=== PATIENT | male | born 1940 | race Caucasian/White ===

== ENCOUNTER → 2019-04-17 10:32 | Outpatient (CLI) | payer OTHER ==
[2012-10-30 07:07] VITALS: BMI 28.7
[~2019-04-17 10:32] MED LIST: ASPIRIN 81 MG E81 MG PO; NORVASC5 MG PO; PRINIVIL20 MG PO; ZETIA10 MG PO
== END | disposition home or self-care (01) ==
LOC: D.HCCARDIO 10:32
PROVIDERS: ATTEND Internal Medicine Interventional Cardiology
DX: I25.10 Atherosclerotic heart disease of native coronary artery without angina pectoris (principal)

== ENCOUNTER 2019-05-06 07:34 | Outpatient (CLI) | payer OTHER ==
[~2019-05-06] VITALS: Ht 177.8 cm; Wt 84.5 kg
--- NOTE | ~2019-05-06 | HEMODYNAMI ---
PATIENT:DAVE QUINTANILLA MEDICAL RECORD: [id number] : 36 LOCATION:[facility] ADMISSION DATE: 05/06/19 Generatedon:05/06/201910:58 Patient name: DAVE QUINTANILLA Patient #: [id number] SSN: [id number] : 1940 Date of study: 05/06/2019 Page: Of Hemodynamic Procedure Report Patient Data Patient Demographics Procedure consent was obtained First Name: DAVE Gender: Male Last Name: DWIGHT : 1940 Middle Initial: EDWARD Age: 78 year(s) Patient #: [id number] Race: SSN: [id number] Additional ID: [id number] Contact details [address]: [address] [place] [address] State: [place] City: [place] Zip code: [address] Past Medical History Performed procedures and imaging results Date Procedure Procedure Results Comments 04/17/2019 Stress testing Positive->Intermediate with SPECT MPI risk Admission Admission Data Admission Date: 05/06/2019 Admission Time: 7:34 Arrival Date: 05/06/2019 Arrival Time: 0:00 Admit Source: Other Insurance Payor: Private health insurance Height (in.): 70 BSA: 2.02 (m2) Height (cm.): 177.8 BMI: 26.71 (kg/m2) Weight (lbs.): 186.18 Weight (kg.): 84.45 Lab Results Lab Result Date: 05/06/2019 Lab Result Time: 0:00 Biochemistry Name Units Result Min Max BUN mg/dl 20 --(----)*- 7 18 Creatinine mg/dl 0.9 --(-*--)-- 0.6 1.3 eGFR ml/min 85.52532 -*(----)-- 90 120 NONAFRICAN CBC Name Units Result Min Max Hematocrit % 41.6 -*(----)-- 42 54 Hemoglobin g/dl 13.4 -*(----)-- 13.5 17.5 Procedure Procedure Types Cath Procedure Diagnostic Procedure [facility] w/Coronaries Procedure Description Procedure Date Procedure Date: 05/06/2019 Procedure Start Time: 10:48 Procedure End Time: 10:55 Procedure Staff Name Function Americo Thomas MD Performing Physician Diana Foy RT Monitor Bita Miller RT Scrub Ibis Gutierrez RN Nurse Procedure Data Cath Procedure Fluoroscopy Diagnostic fluoroscopy Total fluoroscopy Time: 1.9 time: 1.9 min min Diagnostic fluoroscopy Total fluoroscopy dose: 569 dose: 569 mGy mGy Contrast Material Contrast Material Type Amount (ml) Isovue 370 39 Entry Location Entry Primary Successful Side Size Upsize Upsize Entry Closure Jennings ccessful Closure Location (Fr) 1 (Fr) 2 (Fr) Remarks Device Remarks Radial Right 6 Fr Mechanical artery Short Compression Estimated blood loss: 5 ml Diagnostic catheters Device Type Used For End Catheter Placement DIAGNOSTIC [place] 110cm 5 Procedure Fr catheter ([id number]) Procedure Complications No complications Procedure Medications Medication Administration Route Dosage 0.9% NaCl I.V. 100 ml/hr Oxygen etCO2 Nasal cannula 2 l/min Lidocaine 2% added to field 20 Heparin Flush Bag added to field 2 bags (1000units/500ml NS) Radial Cocktail added to field 1 syringe (Verapamil 2mg/Nitro 400mcg/Heparin 1500units) Versed I.V. 2 mg Fentanyl I.V. 50 mcg Fentanyl I.V. 50 mcg Hemodynamics Rest BSA: 2.02 (m2) HGB: 13.4 (g/dl) O2 Consumption: Estimated: 223.01 (ml/min) O2 Co nsumption indexed: Estimated:110.4 (ml/min/m) Heart Rate: 60 (bpm) Snapshots Pre Cath Intra NCS Post Cath Vital Signs Time Heart Resp SPO2 etCO2 NIBP (mmHg) Rhythm Pain Sedation Rate (ipm) (%) (mmHg) Status Level (bpm) 10:36:56 62 12 97 33 146/73(118) Paced 0 (11) 10(A) , No pain 10:41:16 60 14 98 15.1 112/69(89) Paced 0 (11) 10(A) , No pain 10:46:15 60 10 96 39.3 Measuring Paced 0 (11) 10(A) , No pain 10:48:37 60 11 96 42.3 117/68(78) Paced 0 (11) 10(A) , No pain 10:52:48 60 12 97 34 90/54(66) Paced 0 (11) 10(A) , No pain Medications Time Medication Route Dose Verified Delivered Reason Notes E ffectiveness by by 10:35:05 0.9% NaCl I.V. 100 Americo Ibis used for ml/hr William Gutierrez procedure manager 10:35:13 Oxygen etCO2 2 l/min Americo Ibis used for Nasal William Gutierrez procedure cannula RN 10:35:18 Lidocaine 2% added 20ml Americo Americo for local to vial William Thomas MD anesthetic field 10:35:22 Heparin Flush added 2 bags Americo Americo used for Bag to William Thomas MD procedure (1000units/500ml field NS) 10:35:35 Radial Cocktail added 1 Americo Ameirco used for (Verapamil to syringe William Thomas MD procedure 2mg/Nitro field 400mcg/Heparin 1500units) 10:43:06 Fentanyl I.V. 50 mcg Americo Ibis for William Gutierrez sedation RN 10:43:54 Versed I.V. 2 mg Americo Ibis for William Gutierrez sedation RN 10:48:18 Fentanyl I.V. 50 mcg Americo Ibis for William Gutierrez sedation canoe maker Log Time Note 10:19:54 Informed consent obtained and on chart 10:20:15 Procedure Status Elective Heart Cath (OP). 10:20:16 Bita Miller RT(R) sent for patient. Start room use. 10:20:17 Time tracking: Regular hours (M-F 7:00 - 5:00) 10:20:21 Plan of Care:Hemodynamics will remain stable., Cardiac rhythm will remain stable., Comfort level will be maintained., Respiratory function will remain adequate., Patient/ family verbilizes understanding of procedure., Procedure tolerated without complication., Recovers from procedure without complications.. 10:26:26 Pre-procedure instructions explained to patient. 10:26:26 Pre-op teaching completed and patient verbalized understanding. 10:26:28 Family unavailable. 10:26:30 Patient NPO since Midnight. 10:26:33 Is the patient allergic to Iodine/contrast media? No. 10::35 Was the patient premedicated? N/A 10:26:39 Patient received from Pre/Post Procedure Room to CCL 1 Alert and oriented. Tansferred to table in Supine position. 10::40 Warm blankets applied, and ros hugger turned on for patient comfort. 10::40 Correct patient and procedure confirmed by team. 10::41 ECG and BP/O2 sat monitors applied to patient. 10::44 Admit Source: Other 10::51 Alarms reviewed by R. N. 10:: Sharps counted by scrub and verified by R.N. 10:: Lab results completed and on chart. 10::39 Lab Result : BUN 20 mg/dl 10:: Lab Result : eGFR NONAFRICAN 85.68023 ml/min 10::39 Lab Result : Creatinine 0.9 mg/dl 10::39 Lab Result : Hemoglobin 13.4 g/dl 10::39 Lab Result : Hematocrit 41.6 % 10::31 Stress Test: yes; abnormal inferior 10::44 IV patent on arrival in right antecubital with 0.9% NaCl at [facility]. 10:30:03 Diagnostic Cath Status : Elective 10:30:13 Arrival Date: 05/06/2019 12:00:00 AM 10:30:16 Insurance Payor : Private health insurance 10:30:20 Patient Height : 70 inches 10:30:24 Patient Weight : 186.18 lbs 10:30:43 Is patient on blood thinner?No 10:30:45 Patient diabetic? No. 10:30:47 If diabetic: On Metformin? N/A 10:30:49 ----Pre-sedation anethsthesia assessment.---- 10:30:52 Previous problem with sedation/anesthesia? No ? 10:30:53 Snore? Yes 10:30:54 Sleep apnea? No 10:30:56 Deviated septum? No 10:30:57 Opens mouth fully? Yes 10:30:58 Sticks out tongue? Yes 10:31:02 Dentures? No ? 10:31:06 Airway obstruction? No ? 10:31:14 Pre procedure: right dorsailis pedis pulse 2+ Normal; easily identifiable; not easily obliterated 10:35:05 0.9% NaCl 100 ml/hr I.V. was administered by Ibis Gutierrez RN; used for procedure; Verbal order read back and verified. 10:35:13 Oxygen 2 l/min etCO2 Nasal cannula was administered by Ibis Gutierrez RN; used for procedure; Verbal order read back and verified. 10:35:18 Lidocaine 2% 20ml vial added to field was administered by Americo Thomas MD; for local anesthetic; Verbal order read back and verified. 10:35:22 Heparin Flush Bag (1000units/500ml NS) 2 bags added to field was administered by Americo Thomas MD; used for procedure; Verbal order read back and verified. 10:35:35 Radial Cocktail (Verapamil 2mg/Nitro 400mcg/Heparin 1500units) 1 syringe added to field was administered by Americo Thomas MD; used for procedure; Verbal order read back and verified. 10:35:37 Vital chart was started 10:41:25 Modified Jose Cruz's test Ulnar < 7 seconds 10:41:28 Patient pain scale 0/10 ?. 10:41:34 Right Radial & Right Groin area was prepped with chlora-prep and draped in sterile fashion 10:41:38 Use device set Radial Dx or PCI 10:41:40 ACIST Syringe (92186) opened to sterile field. 10:41:40 Medline Cath Pack ([id number]) opened to sterile field. 10:41:41 Bag Decanter (2002) opened to sterile field. 10:41:42 ACIST Hand Control (09036) opened to sterile field. 10:41:43 ACIST Manifold (57090) opened to sterile field. 10:41:44 MBrace Wrist Support (720331447) opened to sterile field. 10:41:47 EMERALD Guide Wire (105-302) opened to sterile field. 10:41:49 SHEATH 6FR RAIN (7396421) opened to sterile field. 10:41:59 Full Disclosure recording started 10:42:00 Baseline sample Acquired. 10:42:03 Rhythm: sinus rhythm 10:42:41 H&P Date Dictated: 05/06/2019 New H&P dictated by physician.. 10:42:46 --------ALL STOP TIME OUT------ 10:42:46 Final Timeout: patient, procedure, and site verified with staff and physician. All members of the team are in agreement. 10:42:48 Right Radial & Right Groin site verified by team. 10:42:53 Fire Safety Assessment: A--An alcohol-based skin anteseptic being used preoperatively., C--Open oxygen or nitrous oxide is being used., D--An ESU, laser, or fiber-optic light is being used. 10:42:56 Physical assessment completed. ASA score P 2 - A patient with mild systemic disease as per Americo Thomas MD. 10:43:00 2) 60-89 Mildly reduced kidney function, and other findings (as for stage 1) point to kidney disease. 10:43:03 Maximum allowable contrast dose (3.7 X eGFR X 0.75)239 ml. 10:43:06 Fentanyl 50 mcg I.V. was administered by Ibis Gutierrez RN; for sedation; Verbal order read back and verified. 10:43:08 Sedation plan: IV Moderate Sedation Medication:Versed, Fentanyl 10:43:54 Versed 2 mg I.V. was administered by Ibis Gutierrez RN; for sedation; Verbal order read back and verified. 10:47:48 Procedure started. 10:48:18 Fentanyl 50 mcg I.V. was administered by Ibis Gutierrez RN; for sedation; Verbal order read back and verified. 10:48:18 Local anesthetic to right radial artery with Lidocaine 2% by Americo Thomas MD.INITIAL ACCESS ONLY 10:48:45 A 6 Fr Short sheath was inserted into the Right Radial artery 10:49:31 A DIAGNOSTIC [place] 110cm 5 Fr catheter (871432) was advanced over the wire and used for Procedure. 10:49:34 LV gram done using WEBSTER 10:49:45 Injector settings: Ml/sec: 5, Volume: 15, 10:50:04 EF : 60 % 10:50:44 RCA angiography performed. 10:50:47 Injector settings: Ml/sec: 3, Volume: 6, 10:51:06 Catheter exchanged over wire. 10:51:27 Use device set [facility] PCI 10:51:33 GUIDE 6FR XBLAD 3.5 catheter ([id number]) opened to sterile field. 10:52:18 LCA angiography performed. 10:52:22 Injector settings: Ml/sec: 3, Volume: 6, 10:52:38 ACCDominant side:Left 10:53:35 Catheter removed. 10:53:50 ZEPHYR REGULAR TR BAND (099949) opened to sterile field. 10:54:07 Sheath removed intact; hemostasis achieved with Mechanical Compression to the Right Radial artery. 10:54:10 Procedure ended.(Physican Out) 10:54:27 Fluoroscopy time 01.90 minutes. 10:54:31 Fluoroscopy dose: 569 mGy 10:54:31 Flurop Dose total: 569 10:54:37 Dose Area Product 08280 mGy/cm. 10:54:41 Contrast amount:Isovue 370 39ml. 10:54:44 Maximum allowable dose exceeded? No. 10:54:45 Sharps counted by scrub and verified by R.N. 10:54:48 [place] band inflated with 10cc of air. 10:54:50 Post Procedure Pulses reassessed and unchanged 10:54:54 Post procedure: right dorsailis pedis pulse 2+ Normal; easily identifiable; not easily obliterated. 10:54:56 Post-procedure physical assessment completed. ASA score P 2 - A patient with mild systemic disease as per Americo Thomas MD. 10:54:59 Post procedure rhythm: unchanged. 10:55:02 Estimated blood loss: 5 ml 10:55:04 Post procedure instruction explained to patient.Patient verbalizes understanding. 10:55:06 Patient needs reinforcement of post procedure teaching. 10:55:35 Procedure and supply charges have been captured, reviewed, submitted and are correct. 10:55:39 Procedure Complication : No complications 10:55:41 Vital chart was stopped 10:55:45 [facility] Findings: mild to moderate CAD (<70%) 10:55:48 Operative report dictated upon procedure completion. 10:55:48 See physician's report for complete and final results. 10:55:51 Report given to Pre/Post Procedure Room. 10:55:54 Patient transfered to Pre/Post Procedure Room with Stretcher. 10:55:57 Procedure ended. 10:55:57 Full Disclosure recording stopped 10:56:05 End room use (Document Last) 10:57:16 End room use (Document Last) Device Usage Item Name Manufacture Quantity Catalog Hospital Part Current Minima l Lot# / Number Charge Number Stock Stock Serial# Code ACIST Acist 1 67756 483977 657136 [id number] 20 ExploraMed (48829) Systems Inc Medline Medline 1 [id number] 683760 84565 388808 5 Cath Pack ([id number]) Bag Microtek 1 2001S 510638 87686 768905 5 Decanter Medical Inc. () ACIST Hand Acist 1 42301 709691 240950 823901 5 Control Medical (65478) Systems Inc ACIST Acist 1 37530 518774 648934 370689 5 Manifold Medical (99575) Systems Inc MBrace Advanced 1 140-0250-00 307357 37586 808710 5 Wrist Vascular Support Dynamics ([id number]) EMERALD Cardinal 1 502-904 826181 377987 442584 5 Guide Wire Health (285-455) SHEATH 6FR Cardinal 1 5519670 570638 2487379 065569 5 [facility] Health (5278040) DIAGNOSTIC Terumo 1 06-4053 647513 321631 198269 5 [place] 110cm 5 Fr catheter (744575) GUIDE 6FR Cardinal 1 72338486 636056 339283 724361 10 XBLAD 3.5 Health catheter (56613256) ZEPHYR Cardinal 1 692624 598083 6443485 364709 5 REGULAR TR Health BAND (001618) Signature Audit [place] Stage Time Signature Unsigned Intra-Procedure 05/06/2019 Diana Foy 10:57:16 AM RT(R) Intra-Procedure 05/06/2019 Ibis Gutierrez 10:57:46 AM RN Intra-Procedure 05/06/2019 Americo Thomas 10:58:00 AM [place] [id number] [place] [address]
[2019-05-06] MEDS ORDERED: LIPITOR10 MG PO (08:00)
[2019-05-06 08:20] VITALS: BP 157/83; Ht 177.8 cm; Wt 84.5 kg
[2019-05-06 09:01] LABS: ALT (SGPT) 20 U/L (10-68); CALC OSMOLALITY 283 mosm/kg (275-300); CARBON DIOXIDE 29.6 mmol/L (21.0-32.0); CHLORIDE - SERUM 106 mmol/L (98-107); CHOL - HDL RATIO 2.2 ratio (2.3-4.9); CHOLESTEROL, TOTAL 112 mg/dL (0-200); CREATININE - SERUM 0.9 mg/dL (0.6-1.3); GLUCOSE 102 mg/dL (74-106); HDL CHOLESTEROL 52 mg/dL (32-96); LDL CHOLESTEROL 38 mg/dL (0-100); LDL-HDL RATIO 0.7 ratio (1.5-3.5); POTASSIUM - SERUM 4.2 mmol/L (3.5-5.1); SODIUM 141 mmol/L (136-145); TRIGLYCERIDE 111 mg/dL (30-200); UREA NITROGEN 20 mg/dL (7-18); eGFR NON AFRICAN AMERICAN 86 mL/min (90-120)
[2019-05-06 09:25] LABS: BASOPHILS 0.4 % (0-2); EOSINOPHILS 4.6 % (0-7); HEMATOCRIT 41.6 % (42.0-54.0); HEMOGLOBIN 13.4 g/dL (13.5-17.5); IMMATURE GRANULOCYTES 0.4 % (0-5); LYMPHOCYTES 43.7 % (15-50); MCH 29.5 pg (26.0-34.0); MCHC 32.2 g/dL (31.0-37.0); MCV 91.6 fL (80.0-100.0); MEAN PLATELET VOLUME 10.3 fL (7.4-10.4); MONOCYTES 10.3 % (2-11); NEUTROPHILS 40.6 % (40-80); PLATELET COUNT 150 10x3/uL (130-400); RBC 4.54 10x6/uL (4.20-6.10); RDW 12.1 % (11.5-14.5); WBC 4.8 10x3/uL (4.8-10.8)
--- NOTE | 2019-05-06 11:05 | NUR ---
PT RECEIVED BACK TO ROOM 5 VIA STRETCHER FROM [place] FOR RECOVERY. PT DROWSY BUT VERBALLY AROUSABLE. PT DENIES PAIN OR DISCOMFORT. IV PATENT INFUSING VIA L ARM PER ORDERS. PT PLACED ON CARDIAC MONITORS AND O2 AT 2L/NC. HR PACED AT 60, BP 120/62, RR 10, SAT 95. ZYPHER BAND AND IMMOBILIZER TO R WRIST/ARM. DRESSING CDI NO S/S HEMATOMA OR BLEEDING NOTED. ARM PINK AND WARM, CAP REFILL BRISK. PT INSTRUCTED NOT TO USE THAT ARM, HE VERBALIZED UNDERSTANDING. CALL LIGHT IN REACH
--- NOTE | 2019-05-06 11:34 | NUR ---
PT RESTING COMFORTABLY, DENIES PAIN OR DISCOMFORT. ZBAND AND IMMOBILIZER IN PLACE, DRESSING REMAINS CDI NO S/S HEMATOMA OR BLEEDING. ARM PINK AND WARM, CAP REFILL BRISK. HOB ELEVATED, SANDWICH AND DRINK SERVED. HR 61, BP 95/51, RR 13. CALL LIGHT IN REACH. CALLED WITH UPDATE AND DISCHARGE TIME DUE TO NO VISITOR POLICY WITH PERMISSION FROM PATIENT.
--- NOTE | 2019-05-06 12:15 | NUR ---
PT RESTING W/O COMPLAINTS. 3CC AIR REMOVED FROM Z BAND, NO BLEEDING NOTED. NO S/S HEMATOMA NOTED. VSS. CALL LIGHT IN REACH
--- NOTE | 2019-05-06 12:45 | NUR ---
PT DOING WELL, DENIES PAIN OR DISCOMFORT. 3 ADD'L CC AIR REMOVED FROM Z BAND, NO BLEEDING OR S/S HEMATOMA NOTED. VSS. DISCHARGE INSTRUCTIONS REVIEWED W PT, HE VERBALIZED UNDERSTANDING.
--- NOTE | 2019-05-06 13:00 | NUR ---
DR. URIAS ROUNDED AND SPOKE WITH PT. Z BAND REMOVED AND DRESSING APPLIED. NO BLEEDING/HEMATOMA NOTED. RIGHT WRIST BRACE IN PLACE. PT INSTRUCTED TO GET UP AND DRESSED AT THIS TIME.
--- NOTE | 2019-05-06 13:15 | NUR ---
RIGHT WRIST DRESSING C/D/I. NO S/S OF HEMATOMA NOTED. PT AMBULATED TO RESTROOM. VOIDED WITHOUT DIFFICULTY. STEADY GAIT NOTED.
--- NOTE | 2019-05-06 13:25 | NUR ---
PT TAKEN TO VEHICLE BY WHEELCHAIR. NO S/S OF DISTRESS NOTED. ALL BELONGINGS AND PAPERWORK IN HAND.
--- NOTE | 2019-05-08 09:52 | HP ---
PATIENT: DAVE QUINTANILLA MEDICAL RECORD: [id number] ACCOUNT: [id number] LOCATION:[facility] : 36 ADMISSION DATE: 05/06/19 PCP: ARA YAALA MD HISTORY AND PHYSICAL EXAMINATION DIAGNOSES: 1. Angina. 2. Abnormal nuclear stress test. 3. Hyperlipidemia. 4. Hypertension. HISTORY OF PRESENT ILLNESS: Mr. Quintanilla presents with anginal symptomatology. Nuclear stress test is abnormal with inducible ischemia. He is now brought for cardiac catheterization. PHYSICAL EXAMINATION: CONSTITUTIONAL/GENERAL APPEARANCE: Well nourished, well developed, appears stated age. EYES: Lids and conjunctivae noninjected. No discharge. No pallor. ENT: Lips within normal limit. No cyanosis. No pallor. NECK: Carotid arteries, bilateral normal upstroke. No bruits. No thrills. No jugular venous pressure or distention. CERVICAL LYMPH NODES: Nontender. Nonenlarged. THYROID: Not enlarged. No nodules. CARDIOVASCULAR: Precordial exam, nondisplaced. No heaves or pericardial thrills. Rate and rhythm, regular. Heart sounds, normal S1, normal S2. No S3, no gallop, no rub. Systolic murmur, not heard. Diastolic murmur, not heard. RESPIRATORY: Respiratory effort, unlabored. Normal curvature. No thoracic deformity. No chest wall tenderness. Percussion, resonant. Auscultation, clear. No wheezes, no rales, no rhonchi. ABDOMEN: Soft, nondistended, nontender. No abdominal pain, no vomiting and normal appetite. MUSCULOSKELETAL: No joint tenderness, normal gait, normal tone. SKIN: Warm and dry. OVERALL IMPRESSION: Anginal symptomatology with abnormal nuclear stress test. We will proceed with coronary angiography. Further care depends upon findings of the angiography. TRANSINT:[id number] Voice Confirmation ID: [id number] DOCUMENT ID: [id number] AKZ URIAS MD at 0952 CC: [id number] DICTATION DATE: 05/06/19 1044 GRAIN TRIMMER: 05/06/19 1151 DEP CLI 05/06/19 [place] [address]
--- NOTE | 2019-05-08 09:52 | OP ---
PATIENT NAME: DAVE QUINTANILLA MEDICAL RECORD: [id number] :36 LOCATION:D.[facility] ADMISSION DATE: SURGEON: KAZ URIAS MD DATE OF OPERATION: 05/06/2019 PROCEDURES: 1. Left heart catheterization. 2. Selective coronary angiography. 3. Left ventriculogram. INDICATION: Angina and coronary artery disease. PROCEDURE IN DETAIL: After informed consent was obtained and after a detailed description of risks, benefits as well as alternative therapies, the patient elected to proceed with angiogram and heart catheterization. The right radial area was prepped, draped in normal sterile fashion. Right radial artery was cannulated via modified Seldinger technique with placement of 6-Lib[place] sheath. All catheters exchanged through this sheath. FINDINGS: Left ventriculogram was performed in standard 30-degree WEBSTER view, reveals preserved cardiac wall motion, ejection fraction 50% to 55%. SELECTIVE CORONARY ANGIOGRAPHY: 1. Left main is with no significant angiographic disease. 2. Left anterior descending has mild irregularities, but no flow-limiting stenosis. 3. The left circumflex has mild irregularities, but no flow-limiting stenosis. 4. The right coronary has a chronic total occlusion in the mid vessel. Distal right coronary fills via well-developed cmit-hm-ypdwa collaterals. OVERALL IMPRESSION: Chronic total occlusion of the right coronary artery with good collateralization, no significant disease on the left. Continue medical management of the coronary artery disease and cardiac risk factors. TRANSINT:[id number] Voice Confirmation ID: [id number] DOCUMENT ID: [id number] KAZ URIAS MD at 0952 CC: [id number] DICTATION DATE: 05/06/19 1057 MATERIAL REQUIREMENTS WORKER: 05/06/19 1251 DEP CLI 05/06/19 [place] [address]
== END 2019-05-06 13:25 | disposition home or self-care (01) ==
LOC: D.CATH 07:34
PROVIDERS: ATTEND Internal Medicine Interventional Cardiology
DX: I25.119 Atherosclerotic heart disease of native coronary artery with unspecified angina pectoris (principal); R94.39 Abnormal result of other cardiovascular function study; I10 Essential (primary) hypertension; E78.5 Hyperlipidemia, unspecified; R06.02 Shortness of breath